=== PATIENT | female | born 1990 | race Caucasian/White ===

== ENCOUNTER 2023-12-20 13:45 | Emergency (ER) | payer SELFPAY ==
[2023-12-20] MEDS: Sodium Chloride 0.9% 10 ML Syringe FLUSH PRN (14:32)
[2023-12-20] MEDS: diphenhydrAMINE 50 MG/ML SDV IVPUSH ONE (14:32)
[2023-12-20] MEDS: Sodium Chloride 0.9% 1,000 ML IV ONE (14:32)
[2023-12-20] MEDS: Metoclopramide 10 MG/2 ML SDV IVPUSH ONE (14:32)
[2023-12-20] MEDS: Sodium Chloride 0.9% 2.5 ML Syringe FLUSH PRN (14:32)
[2023-12-20 14:35] LABS: BASOPHILS ABSOLUTE AUTO 0.06 K/uL (0.00-0.20); BASOPHILS PERCENT AUTO 0.6 % (0.0-1.0); EOSINOPHILS PERCENT AUTO 2.2 % (0.0-6.0); HEMATOCRIT 40.2 % (37.0-47.0); HEMOGLOBIN 13.1 g/dL (12.0-16.0); IMMATURE GRAN ABSOLUTE AUTO 0.03 K/uL (0.00-0.05); IMMATURE GRAN PERCENT AUTO 0.3 % (0.0-0.4); LYMPHOCYTES PERCENT AUTO 31.4 % (24.0-44.0); MEAN CORPUSCULAR HEMOGLOBIN 28.5 pg (28.0-32.0); MEAN CORPUSCULAR HGB CONC 32.6 g/dL (32.0-36.0); MEAN CORPUSCULAR VOLUME 87.4 fL (83.0-99.0); MEAN PLATELET VOLUME 9.9 fL (9.4-12.3); MONOCYTES ABSOLUTE AUTO 0.99 K/uL (0.00-0.80); MONOCYTES PERCENT AUTO 10.7 % (0.0-8.0); NEUTROPHILS ABSOLUTE AUTO 5.07 K/uL (1.80-7.70); NEUTROPHILS PERCENT AUTO 54.8 % (41.0-71.0); PLATELET COUNT,PLT 306 K/uL (150-400); WHITE BLOOD CELL COUNT,WBC 9.25 K/uL (3.9-11.3)
[2023-12-20 14:50] LABS: CALCIUM 9.7 mg/dL (8.5-10.1); CARBON DIOXIDE,CO2 30.1 mmol/L (21.0-32.0); CREATININE 0.7 mg/dL (0.6-1.0); EST CRCL DRUG DOSING (CG) 105.01 mL/min
[2023-12-20] MEDS: Ketorolac 30 MG/ML SDV IVPUSH ONE (15:57)
== END 2023-12-20 16:01 | disposition home or self-care (01) ==
LOC: MW.ED 13:45
DX: R51.9 Headache, unspecified (principal); Z79.899 Other long term (current) drug therapy
CPT/HCPCS: 36415; 70450; 80048; 85025; 96374; 96375; 99284; J1200; J1885; J2765; J3490; J7030